=== PATIENT | male | born 1965 | race Caucasian/White ===

== ENCOUNTER 2019-12-26 10:58 | Emergency (ER) | payer OTHER ==
[2019-12-26 11:09] VITALS: TEMP 97.9; BMI 28.7
[2019-12-26] MEDS ORDERED: SODIUM CHLORIDE 0.9% 500 ML INFUS.BAG IV ONE (12:31)
[2019-12-26] MEDS ORDERED: ACETAMINOPHEN 1000 MG/100 ML VIAL (NON FORMULARY) IVPB ONE (12:31)
[2019-12-26] MEDS ORDERED: METOCLOPRAMIDE HCL INJECTION 10 MG/2 ML VIAL IVPUSH ONE (12:41)
--- NOTE | 2019-12-26 12:43 | EKG ---
Test Reason : Blood Pressure : / mmHG Vent. Rate : 058 BPM Atrial Rate : 058 BPM P-R Int : 152 ms QRS Dur : 086 ms QT Int : 420 ms P-R-T Axes : 032 040 059 degrees QTc Int : 412 ms SINUS BRADYCARDIA OTHERWISE NORMAL ECG NO PREVIOUS ECGS AVAILABLE Confirmed by Pari Acevedo ([id number]) on 12/26/2019 12:43:00 PM Referred By: Confirmed By:Pari Acevedo
--- NOTE | 2019-12-26 12:56 | PDOC ---
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 Pt noticed a transient change in vision described as diplopia and "crystal" in visual field that has since resolved. Headache involves entire head, gradually built up. As pain increased, pt developed nausea; vomited x1. Denies f/c, numbness, tingling, focal weakness, chest pain, sob, palpitations, neck pain, sick contacts. Denies etoh, tobacco. Denies sick contacts. Denies personal hx headaches, bleeds, aneurysm. Denies FHx bleeds, aneurysm. Past History - Past Medical History Allergies/Adverse Reactions: Allergies Allergy/AdvReac Type Severity Reaction Status Date / Time No Known Allergies Allergy Verified 12/26/19 11:05 Home Medications: Ambulatory Orders NK [No Known Home Medication] 12/26/19 - Psycho Social/Smoking Cessation Hx Smoking History: Never smoked Have you smoked in the past 12 months: No Information on smoking cessation initiated: No Hx Alcohol Use: No Drug/Substance Use Hx: No Substance Use Type: None Review of Systems - Review of Systems Able to Perform ROS?: Yes Comments:: CONSTITUTIONAL: Denies F / C, sick contacts, environmental exposures HEENT: Endorses headache, dizziness, changes in vision (since resolved) RESP: Denies SOB, cough CARD: Denies chest pain, palpitations GI: Endorses N / V (x1). Denies diarrhea, abdominal pain : Denies dysuria SKIN: Denies rashes NEURO: Denies numbness, tingling, weakness Is the patient limited Georgian proficient: Yes *Physical Exam - Vital Signs Last Vital Signs Temp Pulse Resp BP Pulse Ox 97.9 F 63 16 122/77 98 12/26/19 11:06 12/26/19 11:06 12/26/19 11:06 12/26/19 11:06 12/26/19 11:06 - Physical Exam GEN: NAD, comfortable. AAOx3. HEENT: NC/AT, CN II-XII grossly intact, EOMI, PERRLA. No facial asymmetry. Normal voice. Supple neck w/ FROM. CV: S1/S2, RRR, no m/r/g LUNG: CTAB, no wheezes, crackles, rales, rhonchi. GI: Soft, ndnt, +BS, no guarding, no rebound. MSK: 2+ distal pulses. No LE edema. No obvious deformities of all extremities. SKIN: Warm, dry, no rashes appreciated. PSYCH: Normal mood and affect. NEURO: Moving all extremities well. FROM UE and LE b/l. 5/5 UE strength b/l. 5/ 5 LE strength b/l. Sensation symmetric and intact throughout. No ataxia on FTN or heel-grover. No pronator drift. No romberg. ED Treatment Course - LABORATORY CBC & Chemistry Diagram: 12/26/19 13:05 12/26/19 13:05 - RADIOLOGY Radiology Studies Ordered: Category Date Time Status HEAD CT WITHOUT CONTRAST [CT] Stat CT Scan 12/26/19 12:37 Ordered Medical Decision Making - Medical Decision Making 12/26/19 12:45 54M presenting with gradual onset headache after picking up garbage w/ associated nausea and vomiting. Headache unchanged, currently dizzy. Visual sx resolved. Neurologically intact exam. r/o intracranial bleeds. DDx includes tension headache, SAH, intracranial mass, headache. - cbc, cmp, coags, t&s - CT head - tyenol, reglan, fluids EKG at triage 1138 HR 58 AK 152 QRS 86 QTc 412 Sinus alix 12/26/19 13:12 Impression: No CT evidence of a focal intracranial lesion or hemorrhage is seen. Right mastoid effusion there is no TTP of the mastoid processes, no TTP of the pinna/tragus, nonerythematous throat 12/26/19 14:17 labs reviewed, reassuring TBili elevated to 1.6; no abdominal sx, no hx liver issues; recommend f/u w/ PCP will reassess headache shortly 12/26/19 14:42 pt feeling significantly better s/p meds dc home w/ pcp f/u Discharge - Discharge Information Problems reviewed: Yes Clinical Impression/Diagnosis: Headache Qualifiers: Headache type: unspecified Headache chronicity pattern: acute headache Intractability: not intractable Qualified Code(s): R51 - Headache Condition: Stable Disposition: HOME - Admission No - Follow up/Referral Referrals: Nelson Goncalves MD [Primary Care Provider] - - Patient Discharge Instructions Patient Printed Discharge Instructions: DI for Headache Additional Instructions: Follow up with your primary care doctor in the next 3-5 days. Your bilirubin was found to be elevated and should be evaluated outpatient. The CAT scan of your head showed no bleeds. Drink plenty of fluids. Take tylenol for pain as directed on the bottle. Return to the Emergency Department if you experience: - worsening headache - changes in vision, hearing - numbness, tingling, weakness of your arms, legs, or face - changes in behavior, fainting - fevers Domitila un seguimiento con abel mdico de atencin primaria en los prximos 3-5 lofton. Se descubri que abel bilirrubina est elevada y debe evaluarse de forma ambulatoria. La tomografa computarizada de abel minesh no mostr hemorragias. Beber mucho lquido. [place] tylenol para el dolor segn lo indicado en la botella. Regrese al Departamento de Emergencias si experimenta: - empeoramiento del dolor de minesh - cambios en la visin, audicin - entumecimiento, hormigueo, debilidad en brazos, piernas o leroy - cambios en el comportamiento, desmayos - fiebres Print Language: BRUNEIAN - Post Discharge Activity Work/Back to School Note: Back to Work
--- NOTE | 2019-12-26 13:19 | PDOC ---
Documentation entered by Brenton Bianchi SCRIBE, acting as scribe for Kim Cifuentes MD. Kim Cifuentes MD: This documentation has been prepared by the Tash zamora Nirvannie, SCRIBE, under my direction and personally reviewed by me in its entirety. I confirm that the documentation accurately reflects all work, treatment, procedures, and medical decision making performed by me. Attending Attestation - Resident Resident Name: VineetJann - ED Attending Attestation I have performed the following: I have examined & evaluated the patient, The case was reviewed & discussed with the resident, I agree w/resident's findings & plan, Exceptions are as noted - HPI HPI: 54 yo M with past medical history of HTN, who presents to the emergency department with 1 day of headache, dizziness, nausea, and vomiting. 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 He notes associated transient diplopia and vision described as seeing stars, has since resolved. He describes his headache as a gradual onset discomfort to the entire head with associated nausea and one episode of emesis. He denies any focal weakness or numbness. - Physicial Exam PE: GENERAL: Awake, alert, and fully oriented, in no acute distress. Appears uncomfortable HEAD: No signs of trauma EYES: PERRLA, EOMI, sclera anicteric, conjunctiva clear ENT: Auricles normal inspection, hearing grossly normal, nares patent, oropharynx clear without exudates. Moist mucosa NECK: Normal ROM, supple, no lymphadenopathy, JVD, or masses LUNGS: Breath sounds equal, clear to auscultation bilaterally. No wheezes, and no crackles HEART: Regular rate and rhythm, normal S1 and S2, no murmurs, rubs or gallops ABDOMEN: Soft, nontender, normoactive bowel sounds. No guarding, no rebound. No masses EXTREMITIES: Normal range of motion, no edema. No clubbing or cyanosis. No cords, erythema, or tenderness NEUROLOGICAL: Cranial nerves II through XII grossly intact. Normal speech, normal gait. Motor and sensation intact SKIN: Warm, dry, normal turgor, no rashes or lesions noted. - Medical Decision Making Pt with severe headache after bending over. Associated with nausea, vomiting, visual floaters. Currently states he has severe headache, but nausea has resolved. No weakness, numbness. CTH no acute findings. Will give IV fluids, tylenol, and reglan and reassess.
[2019-12-26] MEDS ORDERED: METOCLOPRAMIDE HCL INJECTION 10 MG/2 ML VIAL ONE (13:33)
[2019-12-26] MEDS ORDERED: ACETAMINOPHEN INJECTION 100 ML IVPB ONE (13:33)
[2019-12-26 13:45] LABS: BASO % 0.5 % (0-2.0); EOS % 2.5 % (0-4.5); HEMATOCRIT 42.1 % (35.4-49); HEMOGLOBIN 14.4 GM/dL (11.7-16.9); MCH 30.6 pg (25.7-33.7); MCHC 34.2 g/dl (32.0-35.9); MEAN CELL VOLUME 89.5 fl (80-96); MEAN PLT VOLUME 9.6 fl (7.5-11.1); MONO % 4.7 % (3.8-10.2); NEUT % 76.3 % (42.8-82.8); PLATELET COUNT 230 K/MM3 (134-434); RDW 14.4 % (11.9-15.9); WHITE BLOOD COUNT 10.7 K/mm3 (4.0-10.0)
[2019-12-26 13:59] LABS: INR 1.12 (0.83-1.09); PROTHROMBIN TIME (PATIENT) 13.2 SEC (9.7-13.0)
[2019-12-26 14:02] LABS: ACTIVATED PTT 30.6 SECONDS (25.2-36.5)
[2019-12-26 14:14] LABS: ALBUMIN 3.5 g/dl (3.4-5.0); BILIRUBIN,TOTAL 1.6 mg/dL (0.2-1); BLOOD UREA NITROGEN 18.8 mg/dL (7-18); CALCIUM 8.7 mg/dL (8.5-10.1); POTASSIUM 3.8 mmol/L (3.5-5.1); TOT PROT 7.2 g/dl (6.4-8.2)
[2019-12-26 14:49] VITALS: BP 111/68; PULSE 64
== END 2019-12-26 15:15 | disposition home or self-care (01) ==
LOC: JER 10:58
PROC: 3E033GC Introduction of Other Therapeutic Substance into Peripheral Vein, Percutaneous Approach (ICD-10-PCS; principal; 2019-12-26)
PROC: 3E033NZ Introduction of Analgesics, Hypnotics, Sedatives into Peripheral Vein, Percutaneous Approach (ICD-10-PCS; 2019-12-26)
DX: R51 Headache (principal)
CPT/HCPCS: 36415; 70450-TC; 80053; 85025; 85610; 85730; 86850; 86900; 86901; 93005; 93010; 99285-25; J0131

== ENCOUNTER 2020-11-14 21:16 | Emergency (ER) | payer OTHER ==
[2020-11-14 21:21] VITALS: BP 131/75; PULSE 80; TEMP 97.7; BMI 26.6
--- OUTSIDE RECORDS SUMMARY | 2020-11-14 21:50 | XMS ---
:1965 Author Organization [facility] Care Team Providers Name Role Phone Tereso Zhang MD Unavailable Unavailable Luc Mitchell MD Unavailable Unavailable MAGALIS KHOURY Unavailable Unavailable Re-disclosure Warning The records that you are about to access may contain information from federally- assisted alcohol or drug abuse programs. If such information is present, then the following federally mandated warning applies: This information has been disclosed to you from records protected by federal confidentiality rules (42 CFR part 2). The federal rules prohibit you from making any further disclosure of this information unless further disclosure is expressly permitted by the written consent of the person to whom it pertains or as otherwise permitted by 42 CFR part 2. A general authorization for the release of medical or other information is NOT sufficient for this purpose. The Federal rules restrict any use of the information to criminally investigate or prosecute any alcohol or drug abuse patient.The records that you are about to access may contain highly sensitive health information, the redisclosure of which is protected by Article 27-F of the [place] State Public Health law. If you continue you may haveaccess to information: Regarding HIV / AIDS; Provided by facilities licensed or operated by the [facility] Office of Mental Health; or Provided by the [facility] Office for People With Developmental Disabilities. If such information is present, then the following [facility] mandated warning applies: This information has been disclosed to you from confidential records which are protected by state law. State law prohibits you from making any further disclosure of this information without the specific written consent of the person to whom it pertains, or as otherwise permitted by law. Any unauthorized further disclosure in violation of state law may result in a fine or penitentiary sentence or both. A general authorization for the release of medical or other information is NOT sufficient authorization for further disclosure. Allergies, Adverse Reactions, Alerts Type Substance Status Reaction Procedure Medication Description Data Intervention Intervention Source (s) Code Code Drug No Known NO KNOWN No Known White Allergy Allergies ALLERG Allergies [facility] Results ID Date Data Source [id number] 07/02/2020 12:00:00 AM EDT [facility] Name Value Range Interpretation Code Description Data Negin rce(s) Supporting Document(s ) nCoV [facility] RNA XXX JULIO+probe- Imp This lab was ordered by [facility] and reported by [facility] ID Date Data Source [id number] 03/05/2020 12:00:00 AM EDT [facility] Name Value Range Interpretation Code Description Data Negin rce(s) Supporting Document(s ) nCoV [facility] RNA XXX JULIO+probe- Imp This lab was ordered by [facility] and reported by [facility] ID Date Data Source [id number] 02/28/2020 12:00:00 AM EDT [facility] Name Value Range Interpretation Code Description Data Negin rce(s) Supporting Document(s ) nCoV [facility] RNA XXX JULIO+probe- Imp This lab was ordered by [facility] Donaldo CUEVA and reported by [facility] Encounters Encounter Providers Location Date Problem Problem Problem Effective [facility] Data Code Name Description Dates Status Status Source (s) Description Description Outpatient Attender: 11/13 Nasra Gregory Mitchell MD Hospital :00 PM EST O 10/26 (ENT and 09:47 [facility] :[facility] PM ) EST O 10/26 (ENT and 11:15 [facility] :[facility] AM ) EST O 10/22 (ENT and 02:59 [facility] :02 [facility] ) EST O 10/22 (ENT and 02:59 Allergy :33 [facility] PM ) EST O 10/08 (ENT and 03:35 Allergy :56 [facility] PM ) EST O 10/08GEN (ENT and 03:43 Allergy :23 [facility] PM ) EST Emergency [facility]: 03[facility]14 [facility]00 Tereso ALVES MD EDT Insurance Providers Payer name Policy type Policy ID Covered Covered green party's Policy P [id number] / Coverage green party ID relationship to Enriquez Inf ormation type enriquez [place] [id number] [facility]
[2020-11-14] MEDS ORDERED: ACETAMINOPHEN 500 MG TABLET (FP) PO ONE (22:41)
--- NOTE | 2020-11-14 22:41 | PDOC ---
History of Present Illness - History of Present Illness Initial Comments: 11/14/20 22:41 HPI: 55 y/o M with hx of HTN presenting with right shoulder pain and myalgias since receiving the Pfizer vaccine 1 week ago. Patient works in maintenance at another hospital. The day following the vaccination he reported pain at the injection site as well as muscle aches in his back. Denies accidents, trauma, other exercise or triggers. He tried tylenol 2 pills a day which has resolved the symptoms, but he reports his sxs worsen again in the evening. He also reports a MARRERO. He denies fever, chest pain, SOB, abd pain, n/v, dysuria PMHx: as noted above ROS: as noted SHx: Denies tobacco use; no alcohol use; no rec drugs Allergies: NKDA ROS: GENERAL/CONSTITUTIONAL: No fever; + chills. No weakness. HEAD, EYES, EARS, NOSE AND THROAT: No change in vision. No ear pain or discharge. No sore throat. CARDIOVASCULAR: No chest pain or shortness of breath RESPIRATORY: No cough, wheezing, or hemoptysis. GASTROINTESTINAL: No nausea, vomiting, diarrhea or constipation. GENITOURINARY: No dysuria, frequency, or change in urination. MUSCULOSKELETAL: +muscle pain SKIN: No rash NEUROLOGIC: +headache; no vertigo, loss of consciousness, or change in strength/sensation. ENDOCRINE: No increased thirst. No abnormal weight change HEMATOLOGIC/LYMPHATIC: No anemia, easy bleeding, or history of blood clots. ALLERGIC/IMMUNOLOGIC: No hives or skin allergy. PE: GENERAL: Awake, alert, and fully oriented, no acute distress HEAD: No signs of trauma, normocephalic, atraumatic EYES: EOMI, sclera anicteric, conjunctiva clear ENT: Auricles normal inspection, hearing grossly normal, nares patent, oropharynx clear without exudates. Moist mucosa NECK: Normal ROM, no lymphadenopathy LUNGS: No increased work of breathing, symmetrical chest rise, clear to auscultation bilaterally, no wheezes, crackles or rhonchi HEART: Regular rate, regular rhythm, normal S1 and S2, no murmur, peripheral pulses 2+ and equal bilaterally. ABDOMEN: Soft, nondistended, nontender. No guarding, no rebound. No masses. No CVAT MUSCULOSKELETAL: FROM NEUROLOGICAL: Cranial nerves II through XII grossly intact. Normal speech, stable gait, no focal sensorimotor deficits SKIN: Warm, Dry, normal turgor, no rashes or lesions noted <Marlin Frost - Last Filed: 11/15/20 07:29> <Hermes Muñoz - Last Filed: 11/18/20 19:52> - General Chief Complaint: Pain Stated Complaint: PAIN Time Seen by Provider: 11/14/20 21:17 Past History - Medical History COPD: No - Psycho-Social/Smoking History Smoking History: Never smoked Have you smoked in the past 12 months: No <Marlin Frost - Last Filed: 11/15/20 07:29> <Hermes Muñoz - Last Filed: 11/18/20 19:52> - Medical History Allergies/Adverse Reactions: Allergies Allergy/AdvReac Type Severity Reaction Status Date / Time No Known Allergies Allergy Verified 11/14/20 21:21 Home Medications: Ambulatory Orders NK [No Known Home Medication] 12/26/19 *Physical Exam - Vital Signs Last Vital Signs Temp Pulse Resp BP Pulse Ox 97.7 F 80 18 131/75 99 11/14/20 21:18 11/14/20 21:18 11/14/20 21:18 11/14/20 21:18 11/14/20 21:18 <Marlin Frost - Last Filed: 11/15/20 07:29> - Vital Signs Last Vital Signs Temp Pulse Resp BP Pulse Ox 97.7 F 80 18 131/75 99 11/14/20 21:18 11/14/20 21:18 11/14/20 21:18 11/14/20 21:18 11/14/20 21:18 <Hermes Muñoz - Last Filed: 11/18/20 19:52> ED Treatment Course - Medications Given in the ED: ED Medications Discontinued Medications Generic Name Dose Route Start Last Admin Trade Name Freq PRN Reason Stop Dose Admin Acetaminophen 975 mg 11/14/20 22:41 11/14/20 23:29 Acetaminophen 500 Mg Tablet (Fp) PO 11/14/20 22:42 975 mg ONCE ONE Administration <Hermes Muñoz - Last Filed: 11/18/20 19:52> Medical Decision Making - Medical Decision Making 11/15/20 07:42 55 y/o M with hx of HTN presenting with right shoulder pain and myalgias since receiving the Pfizer vaccine 1 week ago. VSS, AF. PE unremarkable -tylenol -reassurance -dc; discussed return pcxns and all questions asnwered; will f/u with pcp <Marlin Frost - Last Filed: 11/15/20 07:29> Discharge - Discharge Information Problems reviewed: Yes <Marlin Frost - Last Filed: 11/15/20 07:29> <WandaHermes - Last Filed: 11/18/20 19:52> - Discharge Information Clinical Impression/Diagnosis: Headache, Myalgia, Back pain Condition: Stable Disposition: HOME - Follow up/Referral Referrals: Nelson Goncalves MD [Primary Care Provider] - - Patient Discharge Instructions Patient Printed Discharge Instructions: DI for Headache Additional Instructions: Additional Instructions: Please return to the emergency department with any new or worsening symptoms or concerns including chest pain, shortness of breath, fainting. Please follow up with your primary care physician within 72 hours for further followup Please take tylenol 650mg every 6 hours as needed for pain control You are likely experiencing an exaggerated immune response following your Pfizer vaccination. You may feel chills, fever, local pain, and body aches. If your symptoms worsen or persist present to the ER or visit your primary doctor Instrucciones adicionales: Regrese al departamento de emergencias con cualquier sntoma o inquietud nuevo o que empeore, lynda dolor de pecho, dificultad para respirar, desmayos. Domitila un seguimiento con abel mdico de atencin primaria dentro de las 72 horas para un seguimiento adicional [place] tylenol 650 mg cada 6 horas segn sea necesario para controlar el dolor Es probable que experimente rai respuesta inmune exagerada despus de abel vacunacin Pfizer. Puede sentir escalofros, fiebre, dolor local y norma corporales. Si jason sntomas empeoran o persisten, acuda a la pete de emergencias o visite a abel mdico de atencin primaria Print Language: TURKISH - Post Discharge Activity Work/Back to School Note: Back to Work
--- NOTE | 2020-11-14 22:48 | PDOC ---
Documentation entered by Becca Allison SCRIBE, acting as scribe for Hermes Muñoz MD. Hermes Muñoz MD: This documentation has been prepared by the Keegan zamora Xhesika, SCRIBE, under my direction and personally reviewed by me in its entirety. I confirm that the documentation accurately reflects all work, treatment, procedures, and medical decision making performed by me. Attending Attestation - Resident Resident Name: Marlin Frost - ED Attending Attestation I have performed the following: I have examined & evaluated the patient, The case was reviewed & discussed with the resident, I agree w/resident's findings & plan, Exceptions are as noted - HPI HPI: 11/14/20 22:20 55y/o M with a pmh of HTN, who presents to the emergency department with 1 week of mild headache, muscle aches, bilateral trapezius pain and bilateral mid back pain. 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 Pt states his symptoms completely resolve with Tylenol. However, the aches return after a few hours. Pt was concerned about his symptoms, prompting his arrival to the ED. Pt denies cp, sob, fevers, chills, cough, N/V/D. Denies neck stiffness. Denies thunderclap. Denies worst headache of life. Allergies: NKDA - Physicial Exam PE: 11/14/20 22:53 See resident exam - Medical Decision Making 11/14/20 22:53 55 M with mild headaches, bodyaches after receiving COVID vaccine. Benign exam in ED. - Tylenol Pt is well appearing, with normal vitals. Clinically stable for DC at this time. I discussed the physical exam findings, ancillary test results and final diagnoses with the patient. I answered all of the patient's questions. The patient was satisfied with the care received and felt comfortable with the discharge plan and treatment plan. The patient agrees to follow up with the primary care physician within 24-72 hours. Please note this patient was evaluated during the COVID-19 crisis with the presidential [place] Act Declaration and the [place] governor executive order number 202. He/she was evaluated and clinical decisions were made relative to healthcare system resources as well as clinical picture during a pandemic crisis situation. Discharge - Discharge Information Problems reviewed: Yes Clinical Impression/Diagnosis: Headache, Myalgia, Back pain Condition: Stable Disposition: HOME - Follow up/Referral Referrals: Nelson Goncalves MD [Primary Care Provider] - - Patient Discharge Instructions Patient Printed Discharge Instructions: DI for Headache Additional Instructions: Additional Instructions: Please return to the emergency department with any new or worsening symptoms or concerns including chest pain, shortness of breath, fainting. Please follow up with your primary care physician within 72 hours for further followup Please take tylenol 650mg every 6 hours as needed for pain control You are likely experiencing an exaggerated immune response following your Pfizer vaccination. You may feel chills, fever, local pain, and body aches. If your symptoms worsen or persist present to the ER or visit your primary doctor Instrucciones adicionales: Regrese al departamento de emergencias con cualquier sntoma o inquietud nuevo o que empeore, lynda dolor de pecho, dificultad para respirar, desmayos. Domitila un seguimiento con abel mdico de atencin primaria dentro de las 72 horas para un seguimiento adicional [place] tylenol 650 mg cada 6 horas segn sea necesario para controlar el dolor Es probable que experimente rai respuesta inmune exagerada despus de abel vacunacin Pfizer. Puede sentir escalofros, fiebre, dolor local y norma corporales. Si jason sntomas empeoran o persisten, acuda a la pete de emergencias o visite a abel mdico de atencin primaria Print Language: GEORGIAN - Post Discharge Activity Work/Back to School Note: Back to Work
[2020-11-14] MEDS ORDERED: ACETAMINOPHEN 325 MG TABLET (FP) ONE (23:27)
== END 2020-11-14 23:32 | disposition home or self-care (01) ==
LOC: JER 21:16 → JERFT 21:16 → JER 23:32
DX: R51.9 Headache, unspecified (principal); M79.10 Myalgia, unspecified site; M54.9 Dorsalgia, unspecified
CPT/HCPCS: 99284-25

== ENCOUNTER 2020-11-18 18:20 | Emergency (ER) | payer OTHER ==
[2020-11-18 18:43] VITALS: TEMP 100.1; BMI 26.6
[2020-11-18 20:13] LABS: BASO % 0.2 % (0-2.0); EOS % 4.9 % (0-4.5); HEMATOCRIT 44.3 % (35.4-49); HEMOGLOBIN 14.9 GM/dL (11.7-16.9); LYMPH % 21.8 % (8-40); MCH 30.1 pg (25.7-33.7); MCHC 33.8 g/dl (32.0-35.9); MEAN CELL VOLUME 89.2 fl (80-96); MONO % 10.8 % (3.8-10.2); NEUT % 62.3 % (42.8-82.8); PLATELET COUNT 202 K/MM3 (134-434); RBC 4.96 M/mm3 (4.00-5.60); RDW 13.8 % (11.9-15.9); WHITE BLOOD COUNT 6.6 K/mm3 (4.0-10.0)
[2020-11-18 20:31] LABS: CHLORIDE 100 mmol/L (98-107); POTASSIUM 3.6 mmol/L (3.5-5.1); SODIUM 134 mmol/L (136-145)
[2020-11-18 20:34] LABS: ALBUMIN 3.1 g/dl (3.4-5.0); ANION GAP 7 MMOL/L (8-16); CALCIUM 7.9 mg/dL (8.5-10.1); CO2 27 mmol/L (21-32); GLUCOSE,RANDOM 90 mg/dL (74-106)
[2020-11-18 20:37] LABS: CREATININE 1.1 mg/dL (0.55-1.3); SGOT/AST 38 U/L (15-37); SGPT/ALT 48 U/L (13-61)
[2020-11-18 20:39] LABS: BILIRUBIN,TOTAL 0.3 mg/dL (0.2-1); TOT PROT 7.2 g/dl (6.4-8.2)
[2020-11-18 20:40] LABS: ALK PHOS 89 U/L (45-117)
[2020-11-18] MEDS ORDERED: ACETAMINOPHEN 500 MG TABLET (FP) PO ONE (20:57)
[2020-11-18] MEDS ORDERED: ACETAMINOPHEN 325 MG TABLET (FP) ONE (20:58)
[2020-11-18] MEDS ORDERED: LACTATED RINGERS SOLUTION 1000 ML INFUS.BAG IV ONE (21:58)
[2020-11-18] MEDS ORDERED: DEXAMETHASONE 4 MG TABLET (FP) PO ONE (21:58)
[2020-11-18] MEDS ORDERED: DEXAMETHASONE SOD PHOSPHATE 10 MG/1 ML VIAL ONE (21:59)
[2020-11-18 22:04] VITALS: BP 113/73; PULSE 75
== END 2020-11-18 23:55 | disposition home or self-care (01) ==
LOC: JER 18:20
DX: Z11.59 Encounter for screening for other viral diseases (principal)
CPT/HCPCS: 36415; 71045-TC-FY; 80053; 82550; 82553; 84484; 85025; 93005; 93010; 99284-25

== ENCOUNTER 2021-11-28 11:44 | Emergency (ER) | payer OTHER ==
[2021-11-28 12:01] VITALS: BP 163/91; PULSE 63; TEMP 98; BMI 25.8
[2021-11-28] MEDS ORDERED: MECLIZINE HCL 25 MG TABLET (FP) PO ONE (13:30)
[2021-11-28] MEDS ORDERED: MECLIZINE HCL 25 MG TABLET (FP) ONE (13:35)
== END 2021-11-28 15:30 | disposition home or self-care (01) ==
LOC: JER 11:44
DX: H81.10 Benign paroxysmal vertigo, unspecified ear (principal)
CPT/HCPCS: 99283-25